=== PATIENT | female | born 1990 | race Caucasian/White ===

== ENCOUNTER 2016-11-23 10:44 | Emergency (ER) | payer BC ==
[~2016-11-23] VITALS: Ht 154.9 cm; Wt 80.0 kg
[~2016-11-23 10:44] MED LIST: CYCL-36 PO; NAPR500 PO
[2016-11-23 11:02] VITALS: BP 125/82; PULSE 99; RESP 16; TEMP 98.2; O2SAT 100
[2016-11-23 11:59] LABS: AUTOMATED NEUTROPHIL # 5.8 TH/MM3 (1.8-7.7); BASOPHIL # 0.1 TH/MM3 (0-0.2); BASOPHIL % 0.7 % (0.0-2.0); EOSINOPHIL % 0.4 % (0.0-4.0); HEMATOCRIT 43.8 % (35.0-46.0); HEMO FLAGS DIFF FINAL; LYMPH % 24.7 % (9.0-44.0); LYMPHOCYTE # 2.1 TH/MM3 (1.0-4.8); MEAN CELL VOLUME 87.1 FL (80.0-100.0); MEAN CORPUSCULAR HEMOGLOBIN 29.4 PG (27.0-34.0); MEAN CORPUSCULAR HGB CONC 33.8 % (32.0-36.0); MONO % 4.6 % (0.0-8.0); NEUT % 69.6 % (16.0-70.0); PLATELET COUNT 305 TH/MM3 (150-450); RED BLOOD COUNT 5.02 MIL/MM3 (4.00-5.30); RED CELL DISTRIBUTION WIDTH 11.5 % (11.6-17.2); WHITE BLOOD COUNT 8.4 TH/MM3 (4.0-11.0)
[2016-11-23 12:00] LABS: BLOOD, URINE LARGE (NEG); GLUCOSE,URINE NEG (NEG); KETONE, URINE NEG (NEG); NITRITE,URINE NEG (NEG)
[2016-11-23 12:04] LABS: METHOD OF COLLECTION CLEAN CATCH
[2016-11-23 12:05] LABS: RBC, URINE 100-200 /hpf (0-3); URINE COLOR YELLOW (YELLW/STRAW)
[2016-11-23 12:06] LABS: COMMENT (UR) CULT NOT INDICATED; CULTURE IF INDICATED CULT NOT INDICATED
[2016-11-23 12:12] LABS: CHLORIDE 103 MEQ/L (98-107); POTASSIUM 3.6 MEQ/L (3.5-5.1); SODIUM (NA) 138 MEQ/L (136-145)
[2016-11-23 12:16] LABS: ANION GAP 8 MEQ/L (5-15); BICARBONATE 27.4 MEQ/L (21.0-32.0); BLOOD UREA NITROGEN 9 MG/DL (7-18)
[2016-11-23 12:19] LABS: ALT (GPT) 29 U/L (10-53); AST (GOT) 12 U/L (15-37); GLOMERULAR FILTRATION RATE 105 ML/MIN (>89)
[2016-11-23 12:21] LABS: TOTAL BILIRUBIN ADULT 0.9 MG/DL (0.2-1.0)
[2016-11-23 12:22] LABS: ALKALINE PHOSPHATASE 74 U/L (45-117)
[2016-11-23 12:24] LABS: BETA HCG QUANT 35 MIU/ML (0-5)
--- NOTE | 2016-11-23 12:44 | PD ---
HPI Chief Complaint: Cotton Bag Sewer Problem/Complaint Time Seen by Provider: 11:27 Travel History International Travel<30 days: No Contact w/Intl Traveler<30days: No Traveled to known affect area: No History of Present Illness HPI Patient is a 26 year old female who comes in complaining of vaginal bleeding. She says her last menstrual period was October 14 and she has taken several home tests that have been positive. She started bleeding earlier today and has passed clots. She complains of cramping pain in her lower abdomen and back. She denies nausea or vomiting. She denies dizziness or palpitations. She has had two previous pregnancies with no previous issues. [facility] Past Medical History Medical History: Denies Significant Hx Tetanus Vaccination: Unknown Influenza Vaccination: No ?: LMP: 10/14/16 Past Surgical History Surgical History: No Previous Surgery Social History Alcohol Use: Yes (social) Tobacco Use: No Substance Use: No Allergies-Medications (Allergen,Severity, Reaction): Coded Allergies: No Known Allergies (Unverified , 11/23/16) Reported Meds & Prescriptions Reported Meds & Active Scripts Active No Active Prescriptions or Reported Medications Review of Systems Except as stated in HPI: all other systems reviewed are Neg General / Constitutional: No: Fever, Chills HENT: No: Headaches, Lightheadedness Cardiovascular: No: Chest Pain or Discomfort Respiratory: No: Shortness of Breath Gastrointestinal: Positive: Abdominal Pain, No: Nausea, Vomiting Genitourinary: Positive: Vaginal Bleeding Musculoskeletal: No: Myalgias, Edema Skin: No Rash, No Change in Pigmentation Neurologic: No: Weakness, Dizziness Physical Exam Narrative GENERAL: Awake and alert, in no acute distress. SKIN: Focused skin assessment warm/dry. HEAD: Atraumatic. Normocephalic. EYES: Pupils equal and round. No scleral icterus. ENT: Mucous membranes pink and moist. NECK: Trachea midline. No JVD. CARDIOVASCULAR: Regular rate and rhythm. No murmur appreciated. RESPIRATORY: No accessory muscle use. Clear to auscultation. Breath sounds equal bilaterally. GASTROINTESTINAL: Abdomen soft, non-tender, nondistended. : Exam performed in the presence of a female nurse. Large amount of blood in the vaginal vault, blood coming from the os, which appears open. No CMT. MUSCULOSKELETAL: No obvious deformities. No clubbing. No cyanosis. No edema. NEUROLOGICAL: Awake and alert. No obvious cranial nerve deficits. Motor grossly within normal limits. Normal speech. PSYCHIATRIC: Appropriate mood and affect; insight and judgment normal. Data Data Last Documented VS Vital Signs Date Time Temp Pulse Resp B/P (MAP) Pulse Ox O2 Delivery O2 Flow Rate FiO2 11/23/16 12:45 83 18 116/80 (92) 98 Room Air 11/23/16 11:02 98.2 Orders Orders Iv Access Insert/Monitor (11/23/16 11:33) Complete Blood Count With Diff (11/23/16 11:33) Comprehensive Metabolic Panel (11/23/16:33) Beta Hcg (Quant/Titer) (11/23/16:33) Type And Screen (11/23/16:) Urinalysis - C+S If Indicated (11/23/16:33) Us Pelvis (Ques Pr/Ect)W Trans (11/23/16 ) Acetaminophen (Tylenol) (11/23/16 13:00) Labs Laboratory Tests Test 11/23/16 11:00 White Blood Count 8.4 TH/MM3 Red Blood Count 5.02 MIL/MM3 Hemoglobin 14.8 GM/DL Hematocrit 43.8 % Mean Corpuscular Volume 87.1 FL Mean Corpuscular Hemoglobin 29.4 PG Mean Corpuscular Hemoglobin Concent 33.8 % Red Cell Distribution Width 11.5 % Platelet Count 305 TH/MM3 Mean Platelet Volume 8.2 FL Neutrophils (%) (Auto) 69.6 % Lymphocytes (%) (Auto) 24.7 % Monocytes (%) (Auto) 4.6 % Eosinophils (%) (Auto) 0.4 % Basophils (%) (Auto) 0.7 % Neutrophils # (Auto) 5.8 TH/MM3 Lymphocytes # (Auto) 2.1 TH/MM3 Monocytes # (Auto) 0.4 TH/MM3 Eosinophils # (Auto) 0.0 TH/MM3 Basophils # (Auto) 0.1 TH/MM3 CBC Comment DIFF FINAL Differential Comment Urine Collection Type CLEAN CATCH Urine Color YELLOW Urine Turbidity SLIGHT Urine pH 6.0 Urine Specific [place] 1.009 Urine Protein NEG mg/dL Urine Glucose (UA) NEG mg/dL Urine Ketones NEG mg/dL Urine Occult Blood LARGE Urine Nitrite NEG Urine Bilirubin NEG Urine Leukocyte Esterase NEG Urine RBC 100-200 /hpf Urine WBC 3-5 /hpf Urine Squamous Epithelial Cells 6-8 /hpf Microscopic Urinalysis Comment CULT NOT INDICATED Urine Collection Time 11:00 Blood Urea Nitrogen 9 MG/DL Creatinine 0.69 MG/DL Random Glucose 93 MG/DL Total Protein 7.6 GM/DL Albumin 3.8 GM/DL Calcium Level 8.7 MG/DL Alkaline Phosphatase 74 U/L Aspartate Amino Transf (AST/SGOT) 12 U/L Alanine Aminotransferase (ALT/SGPT) 29 U/L Total Bilirubin 0.9 MG/DL Sodium Level 138 MEQ/L Potassium Level 3.6 MEQ/L Chloride Level 103 MEQ/L Carbon Dioxide Level 27.4 MEQ/L Anion Gap 8 MEQ/L Estimat Glomerular Filtration Rate 105 ML/MIN Human Chorionic Gonadotropin, Quant 35 MIU/ML MDM Medical Decision Making Medical Screen Exam Complete: Yes Emergency Medical Condition: Yes Differential Diagnosis Threatened vs vs completed vs missed vs UTI Narrative Course Patient is a 26-year-old female who comes in complaining of vaginal bleeding in . Exam shows a large amount of blood coming from the os, os appears open on exam, though I cannot feel the inside. IV established, labs sent. Labs show no acute abnormalities. Patient is Rh+. Ultrasound performed shows no IUP. There is a cyst on the ovary, no evidence of ectopic . Beta hCG is only 35. Last 24 hours Impressions Pelvis Ultrasound 11/23/16 0000 Signed Impressions: Service Date/Time: Monday, November 23, 2016 13:07 - CONCLUSION: 1. No gestational sac currently seen. With a quantitative beta hCG of 35 this is well below the threshold for ultrasound detection. 2. 14 mm complex cyst involving the right ovary. Followup ultrasound in 2-3 months suggested to document resolution. Scot Grant Jr., MD Patient informed of the ovarian cyst. Advised this is likely a miscarriage, but it could be early . She is advised to return in 2 days for repeat lab work. Advised follow-up with her MAINTENANCE PLUMBER regarding the ovarian cyst. Advised to return to the ED as needed for any worsening symptoms. Diagnosis Primary Impression: Threatened Additional Impression: Ovarian cyst Qualified Codes: N83.201 - Unspecified ovarian cyst, right side Patient Instructions: General Instructions, Ovarian Cyst (ED), Threatened Miscarriage (ED) Additional Instructions: Return in 2 days for repeat blood work. Return any time for any worsening symptoms. You have a 14 mm complex ovarian cyst on the right side. You should follow-up with your terrazzo finisher in 2 months for repeat ultrasound and evaluation. Scripts No Active Prescriptions or Reported Meds Disposition: 01 DISCHARGE HOME Condition: Stable Rocio Hobson MD Nov 23, 2016 12:44
[2016-11-23 12:45] VITALS: BP 116/80; PULSE 83; RESP 18; O2SAT 98
[2016-11-23] MEDS ORDERED: ACETAMINOPHEN 325 MG TAB PO ONE (13:00)
--- NOTE | 2016-11-23 14:11 | RADRPT ---
EXAM DATE/TIME: 11/23/2016 13:07 [facility] COMPARISON: No previous studies available for comparison. INDICATIONS : Vaginal bleeding. Pelvic pain. LAB(S): Beta-hC MEDICAL HISTORY : . Vaginal bleeding. SURGICAL HISTORY : None. ENCOUNTER: Initial ACUITY: 1 day PAIN SCORE: 7/10 LOCATION: Bilateral pelvis MEASUREMENTS: UTERUS: 10.2 x 6.0 x 4.8 cm ENDOMETRIAL STRIPE: 6 mm RIGHT OVARY: 3.7 x 2.8 x 2.1 cm LEFT OVARY: 3.4 x 2.4 x 2.1 cm FREE FLUID: Yes cul de sac FINDINGS: UTERUS: The myometrium has homogeneous echotexture without mass.No IUP currently seen. RIGHT OVARY: Ovary contains no mass or significant cystic lesion. A complex cystic lesion is seen involving the ri ght ovary measuring 14 mm in diameter. This is thick walled. There is posterior acoustical enhancemen t noted. LEFT OVARY: Ovary contains no mass or significant cystic lesion. MISCELLANEOUS: Trace fluid within the cul-de-sac. CONCLUSION: 1. No gestational sac currently seen. With a quantitative beta hCG of 35 this is well below the thres hold for ultrasound detection. 2. 14 mm complex cyst involving the right ovary. Followup ultrasound in 2-3 months suggested to docum ent resolution. Scot Grant Jr., MD on November 23, 2016 at 13:51 Board Certified Radiologist. This report was verified electronically.
[2016-11-23 14:15] VITALS: BP 114/70; PULSE 85; RESP 18; O2SAT 99
[2016-11-23 14:52] VITALS: BP 109/74
== END 2016-11-23 15:01 | disposition home or self-care (01) ==
LOC: PHED 10:44
DX: O20.0 Threatened abortion (principal); N83.201 Unspecified ovarian cyst, right side
CPT/HCPCS: 76700; 76817; 80053; 81001; 84702; 85025; 86850; 86900; 86901; 99284